=== PATIENT | female | born 1985 | race Caucasian/White ===

== ENCOUNTER 2017-09-19 11:07 | Emergency (ER) | payer MEDICAID, OTHER ==
[~2017-09-19] VITALS: Ht 162.6 cm; Wt 54.4 kg
[2017-09-19 11:23] VITALS: BP 128/79
[2017-09-19 11:54] LABS: HEMATOCRIT 38.3 % (37.0-47.0); HEMOGLOBIN 12.8 G/DL (12.0-16.0); MEAN CORPUSCULAR VOLUME 88 FL (80-99); PLATELET COUNT 146 K/UL (150-450); RED BLOOD COUNT 4.36 M/UL (4.20-5.40); WHITE BLOOD COUNT 2.7 K/UL (4.8-10.8)
[2017-09-19 12:01] LABS: APPEARANCE,URINE CLEAR; BILIRUBIN, URINE NEGATIVE (NEGATIVE); COLOR,URINE PALE YELLOW; GLUCOSE, URINE (UA) NEGATIVE (NEGATIVE); KETONES,URINE NEGATIVE (NEGATIVE); LEUKOCYTE ESTERASE ,URINE 1+ (NEGATIVE); NITRITE,URINE NEGATIVE (NEGATIVE); PH,URINE 7 (4.5-8.0); PROTEIN,URINE NEGATIVE (NEGATIVE); UROBILINOGEN,URINE NORMAL MG/DL (0.0-1.0)
[2017-09-19 12:04] LABS: ANION GAP 6 mmol/L (5-15); BLOOD UREA NITROGEN 7 mg/dL (7-18); CALCIUM 8.5 MG/DL (8.5-10.1); CARBON DIOXIDE 29 MMOL/L (21-32); CHLORIDE 106 MMOL/L (98-107); CREATININE 0.6 MG/DL (0.55-1.30); POTASSIUM 3.5 MMOL/L (3.5-5.1); SODIUM 141 MMOL/L (136-145)
[2017-09-19] MEDS: Meclizine 25mg tab ORAL PRN (12:40)
[2017-09-19 13:05] VITALS: BP 129/82
[2017-09-19] MEDS ORDERED: MECLIZINE HCL12.5 MG ORAL (13:06)
[2017-09-19 13:15] VITALS: BP 128/79
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
== END 2017-09-19 13:25 | disposition home or self-care (01) ==
LOC: EMR 11:57
DX: R42 Dizziness and giddiness (principal)
CPT/HCPCS: 36415; 80048; 81003; 81025; 85007; 85025; 99283